=== PATIENT | female | born 1970 | race Caucasian/White ===

== ENCOUNTER 2019-08-13 07:41 | Day surgery (SDC) | payer BC ==
[2019-08-13 08:23] VITALS: BMI 29.5
[2019-08-13 08:48] VITALS: TEMP 98
[2019-08-13 09:00] VITALS: PULSE 66
[2019-08-13 09:19] VITALS: BP 104/70
--- NOTE | 2019-08-14 15:53 | PATH ---
Surgical Pathology Report Patient Name: MIAN CHAPA [facility]. Rec. #: [id number] /Age/Gender: 1970 (Age: 49) / F Account: [id number] Location: U-ENDOSCOPY Taken: 08/13/2019 Received: 08/13/2019 Reported: 08/14/2019 Physicians: LILY CAMPUZANO Specimen(s) Received A: DUODENUM B: STOMACH ANTRUM C: ESOPHAGUS Clinical History Abdominal pain, family history of esophageal and stomach cancer Postoperative diagnosis: GERD, hiatal hernia Final Diagnosis A. DUODENUM, BIOPSY: DUODENAL MUCOSA WITHOUT SIGNIFICANT PATHOLOGIC FINDINGS. B. STOMACH, ANTRUM, BIOPSY: GASTRIC ANTRAL MUCOSA WITH MILD CHRONIC GASTRITIS. IMMUNOHISTOCHEMICAL STAIN FOR H. PYLORI IS NEGATIVE. C. ESOPHAGUS, BIOPSY: SQUAMOUS MUCOSA WITH CHANGES OF MODERATE REFLUX TYPE ESOPHAGITIS. Positive and negative controls (internal if applicable) show appropriate results. Electronically Signed Rosibel May M.D. Gross Description A. Received in formalin, labeled "biopsy duodenum" is a humphrey, irregular portion of soft tissue measuring 0.4 cm. in greatest dimension. The specimen is submitted in toto in one cassette. B. Received in formalin, labeled "biopsy stomach/antrum" are 2 humphrey, irregular portions of soft tissue measuring 0.3 and 0.4 cm. in greatest dimension. The specimens are submitted in toto in one cassette. C. Received in formalin, labeled "biopsy esophagus" is a humphrey, irregular portion of soft tissue measuring 0.3 cm. in greatest dimension. The specimen is submitted in toto in one cassette. 08/13/2019 [facility]08/13/2019
== END 2019-08-13 09:22 | disposition home or self-care (01) ==
LOC: JASU-ENDO 07:41
PROVIDERS: ATTEND Internal Medicine Gastroenterology
PROC: 0DB68ZX Excision of Stomach, Via Natural or Artificial Opening Endoscopic, Diagnostic (ICD-10-PCS; 2019-08-13)
PROC: 0DB58ZX Excision of Esophagus, Via Natural or Artificial Opening Endoscopic, Diagnostic (ICD-10-PCS; 2019-08-13)
PROC: 0DB98ZX Excision of Duodenum, Via Natural or Artificial Opening Endoscopic, Diagnostic (ICD-10-PCS; principal; 2019-08-13 08:30)
DX: K29.50 Unspecified chronic gastritis without bleeding (principal); K21.0 Gastro-esophageal reflux disease with esophagitis; R10.9 Unspecified abdominal pain; R14.0 Abdominal distension (gaseous)
CPT/HCPCS: 81025; 88305-TC; 88342-TC